=== PATIENT | female | born 1955 | race Caucasian/White ===

== ENCOUNTER 2020-03-07 14:45 | Emergency (ER) | payer OTHER ==
--- NOTE | 2020-03-07 15:56 | NUR ---
PROSTHETIC ASSISTANT: PT LEFT BEFORE NURSING TRIAGE COULD BE DONE.
--- NOTE | 2020-03-07 15:56 | NUR ---
TRIAGE AND DISCHARGE DONE BY DR LEVY.
== END 2020-03-07 16:03 ==
LOC: ED 14:48
DX: Z20.828 Contact with and (suspected) exposure to other viral communicable diseases (principal)
CPT/HCPCS: 87635; 99283